=== PATIENT | male | born 1995 | race Caucasian/White ===

== ENCOUNTER 2021-11-05 00:04 | Emergency (ER) | payer OTHER ==
[~2021-11-05] VITALS: Ht 170.2 cm; Wt 68.5 kg
[2021-11-05 00:18] VITALS: BP 139/75
--- NOTE | 2021-11-05 00:24 | NUR ---
PATIENT TO THE BATHROOM FOR URINE COLLECTION
--- NOTE | 2021-11-05 01:02 | NUR ---
ERMD EXAMINING PATIENT IN TRIAGE
[2021-11-05] MEDS ORDERED: DOXYCYCLINE 100 MG CAP PO STA (01:06)
[2021-11-05] MEDS ORDERED: ACYCLOVIR 200 MG CAP PO ONE (01:10)
[2021-11-05] MEDS ORDERED: cefTRIAXone 1,000 MG VIAL IM ONE (01:10)
[2021-11-05] MEDS ORDERED: LIDOCAINE MPF 1% 5 ML ONE (01:18)
[2021-11-05] MEDS ORDERED: DOXY-487 PO (02:21)
[2021-11-05] MEDS ORDERED: ACYC400T14 PO (02:21)
[2021-11-05 02:44] VITALS: BP 126/78
--- NOTE | 2021-11-05 02:44 | NUR ---
Patient discharged. Written and verbal after care instructions given and explained. Patient alert, oriented and verbalized understanding of instructions. Ambulatory with steady gait. All questions addressed prior to discharge. ID band removed. Patient advised to follow up with PMD. Rx of Zovirax, and Doxycycline Hyclate given. Patient educated on indication of medication including possible reaction and side effects. Opportunity to ask questions provided and answered.
--- NOTE | 2021-11-05 14:30 | NUR ---
LATE ENTRY. RECEIVED POSITIVE RPR RESULT. FORM GIVEN TO DR FOFANA. TREATMENT APPROPRIATE. DR FOFANA STATED SHE WILL CONTACT PT DIRECTLY. FORM SENT TO INFECTION CONTROL AND PLACED IN [facility].
== END 2021-11-05 02:44 | disposition home or self-care (01) ==
LOC: MED 00:04
DX: A64 Unspecified sexually transmitted disease (principal); Z79.2 Long term (current) use of antibiotics; Z79.899 Other long term (current) drug therapy
CPT/HCPCS: 36415; 86592; 86703; 87252; 87491; 87529; 96372; 99283; J0696; J2001